=== PATIENT | female | born 1995 | race Caucasian/White ===

== ENCOUNTER 2020-04-17 07:17 | Day surgery (SDC) | payer OTHER, SELFPAY ==
[2020-04-11 15:30] VITALS: BMI 34.0
--- NOTE | 2020-04-15 15:44 | P.CONAN_ITS ---
Documented by User: Aleena Cohen 04/16/20 10:51 HPI - Anesthesia Eval Consult details Narrative: 24yo F for Salpingectomy Laproscopic PMFSH Past Medical History Medical History Anxiety and depression Obesity (BMI 30.0-34.9) Family History Family History Mother Asthma Maternal Grandmother HTN (hypertension) Surgical History Surgical History No history of previous surgery Social History Social History Are you a primary transitional care nurse to a significant other at home: No Do you presently have visiting nurse or other home services: No Alcohol intake: never Smoking Status: Current every day smoker Tobacco Type: Cigarette Packs Per Day: 0.5 Cigarettes Per Day: 10.0 Years Smoked: 13 Smoked in Last 30 Days: Yes Patient Interested in Nicotine Replacement: No Patient Given Instructions on How to Stop Smoking: Yes Date Education Initiated: 04/11/20 Use of substances other than those prescribed or required for medical reasons: No Have you been hit, kicked, punched, or otherwise hurt by someone within the past year? If so, by whom?: No Advance Directives: No Advance Directives Information Provided: No Advance Directives on File: No Recently lost weight without trying: No Sexual orientation: Straight/Heterosexual Gender identity: female Meds Allergies Allergy/AdvReac Type Severity Reaction Status Date / Time No Known Allergies Allergy Verified 04/14/20 11:27 Exam Exam Date and Time: April 15, 2020 1544 Height,Weight and Vital Signs: Height 5 ft 1 in Weight 81.647 kg Pertinent Lab Results Pertinent Lab Results: Laboratory Tests 11/15/19 16:10 WBC 9.7 Hgb 12.1 Hct 35.6 L Plt Count 194 Assessment and Plan Assessment Anesthesia Assessment: Chart Reviewed Documented by User: Sandra Moralez 04/17/20 09:08 [facility] Past Medical History Medical History Anxiety and depression Obesity (BMI 30.0-34.9) Family History Family History Mother Asthma Maternal Grandmother HTN (hypertension) Family history of problems with anesthesia: No Surgical History Surgical History No history of previous surgery Social History Social History Are you a primary transitional care nurse to a significant other at home: No Do you presently have visiting nurse or other home services: No Alcohol intake: never Smoking Status: Current every day smoker Tobacco Type: Cigarette Packs Per Day: 0.5 Cigarettes Per Day: 10.0 Years Smoked: 13 Smoked in Last 30 Days: Yes Patient Interested in Nicotine Replacement: No Patient Given Instructions on How to Stop Smoking: Yes Date Education Initiated: 04/11/20 Use of substances other than those prescribed or required for medical reasons: No Have you been hit, kicked, punched, or otherwise hurt by someone within the past year? If so, by whom?: No Advance Directives: No Advance Directives Information Provided: No Advance Directives on File: No Recently lost weight without trying: No Sexual orientation: Straight/Heterosexual Gender identity: female Meds Allergies Allergy/AdvReac Type Severity Reaction Status Date / Time No Known Allergies Allergy Verified 04/14/20 11:27 Exam Height,Weight and Vital Signs: Vital Signs Temp Pulse Resp BP Pulse Ox 04/17/20 07:45 97.4 F 70 18 102/51 L 96 Pertinent Lab Results Pertinent Lab Results: Lab Results 04/17/20 Range/Units 07:35 Beta HCG, Quant < 2 mIU/mL Airway Mallampati Class: III (Small mouth opening) TM Dist: >3cm Neck ROM: Full Loose/Missing/Broken Teeth: No Heart: RRR Lungs: CTAB Assessment and Plan Assessment Anesthesia Assessment: Anesthesia Plan Discussed and Chart Reviewed Final Anesthetic Review NPO: Yes ASA Class: II Final Preanesthetic Review: No Changes in Pt Med Stat, Meds/Allgs Chart Reviewed and Consent Obtained/Reviewed Patient Risk: Low Procedure Risk: Intermediate Anesthetic Plan Anesthetic Plan: GA Disposition: Standard PACU
[2020-04-17] VITALS (11 sets, daily range): BP systolic 85–106; BP diastolic 50–71; PULSE 59–85; RESP 16–18; TEMP 36.3–37.2; O2SAT 95–100
[2020-04-17] MEDS: Lactated Ringers 1,000 ML 100 ML IVCONT (07:42)
[2020-04-17] MEDS: Acetaminophen 325 MG TABLET 650 MG PO (07:42)
[2020-04-17 08:50] LABS: HCG Quantitative < 2 mIU/mL
--- NOTE | 2020-04-17 09:10 | MHC.SHP ---
Pre-Procedural Eval Section A The patient is an INPATIENT: No Changes since office visit: No Cold of Flu in the past 2 weeks, No New Medical Problems, No Changes in Medication and No Patient answered all questions The History & Physical has been completed within 30 days and I have reviewed it.: Yes Section B Chief Complaint: contraceptive management Allergies: Allergies Allergy/AdvReac Type Severity Reaction Status Date / Time No Known Allergies Allergy Verified 04/14/20 11:27 Plan Patient has been examined and remains a candidate for the planned procedure
[2020-04-17] MEDS: oxyCODONE HCl Immed Release 5 MG TABLET PO ×2 (10:50→11:28)
--- NOTE | 2020-04-17 10:50 | W.PM.OPN ---
Operative Note Operative Note Date of Service: 04/17/20 Narrative: Ms. Waddell is a 24 year old who has completed her family planning and desires a permanent form of sterilization. Surgical Risks: The patient was informed of the risks and benefits of the procedure. Risks included but were not limited to bleeding, infection, injury to the vulva, vagina, or cervix, and uterine perforation. The patient was counseled on the risk of sterilization failure being about 1% on average. The patient was informed that in the event a occurs, the risk of ectopic is increased. The patient expressed understanding of the risks involved, all questions were answered, and the patient consented to the procedure. The patient had valid sterilization consent at the time of the procedure. The patient was taken to the operating room where a time out was performed to confirm correct patient and correct procedure. General anesthesia was established. The patient was then positioned on the operating table in the dorsal lithotomy position with the legs supported using stirrups. All pressure points were padded and a Ron hugger was placed to maintain control of core body temperature. The patient was then prepped and draped in the usual sterile fashion. A red rubber catheter was inserted and 100mL urine obtained. A spongestick was placed in the vagina for uterine manipulation. Attention was turned to the abdomen where a 5mm vertical infraumbilical incision was made. The 5mm trocar was introduced under direct visualization using the laparoscopy within the sleeve of the trocar. After intra-abdominal placement had been confirmed, the trocar was removed leaving the sleeve in place. The camera was introduced and pneumoperitoneum was established using carbon dioxide. Inspection of the abdominal cavity showed no gross abnormalities and there was no evidence of injury to the bowel, bladder, or vasculature. Attention was turned to the pelvis. The patient was placed into Trendelenburg position. The fallopian tubes and ovaries were visualized bilaterally. There were no abnormalities noted. A small incision was made approximately 2cm superior and 2cm medial to the left ASIS. A 5mm trocar was introduced through this incision under direct visualization with the laparoscope. The identical procedure was then performed on the right. The fallopian tubes were inspected bilaterally and the fimbriated ends of the fallopian tube were visualized bilaterally. The distal end of the left tube was grasped and lifted up and being careful to avoid the ovarian vessels, salpingectomy was performed walking the Ligasure device cauterizing and cutting one bite at a time from the distal end to the medial end of the tube, where it was cauterized and cut from the uterus at the cornua and removed through the trocar. The identical procedure was then performed on the right. The tubes were sent to pathology for analysis. The pneumoperitoneum was then evacuated. The laparoscope was removed and the trocar sleeves were removed. The skin incisions were closed with interrupted 3-0 vicryl sutures and Dermabond. Good hemostasis was confirmed. The patient was transferred to the recovery room in stable condition. All needle, sponge, and instrument counts were noted to be correct x2 at the end of the procedure. EBL: 2cc
[2020-04-17] MEDS: fentaNYL citrate/PF 100 MCG/2 ML VIAL 25 MCG IVPUSH ×3 (10:57→11:22)
--- NOTE | 2020-04-17 12:50 | HO.POSTANES ---
Post Anesthesia Evaluation Post Anesthesia Evaluation Vital Signs: Vital Signs Temp Pulse Resp BP Pulse Ox 04/17/20 12:11 98.9 F 79 17 95/50 L 95 04/17/20 11:40 67 99/60 96 04/17/20 11:27 72 94/56 L 98 04/17/20 11:22 16 04/17/20 11:15 71 16 95/54 L 98 04/17/20 11:02 59 16 100/62 99 04/17/20 10:57 66 16 104/71 99 04/17/20 10:52 74 16 106/64 99 04/17/20 10:47 82 16 91/64 98 04/17/20 10:42 98.6 F 85 16 85/63 L 100 04/17/20 07:45 97.4 F 70 18 102/51 L 96 Anesthesia: General Endotracheal-GETA Mental Status: Awake Pain Control: Satisfactory Nausea/Vomiting: None Hydration: Adequate Anesthesia-Related Issues: No Anes. Related Issues
== END 2020-04-17 13:02 | disposition home or self-care (01) ==
PROVIDERS: Visit Provider Obstetrics & Gynecology
PROC: (CPT 58661; principal; 2020-04-17 09:10)
DX: Z30.2 Encounter for sterilization (principal); F17.210 Nicotine dependence, cigarettes, uncomplicated; F32.9 Major depressive disorder, single episode, unspecified; E66.9 Obesity, unspecified; Z68.34 Body mass index [BMI] 34.0-34.9, adult
CPT/HCPCS: 58661; 84702; 88302; J1100; J1885; J2250; J2405; J3010

== ENCOUNTER → 2020-04-30 12:44 | Outpatient (BNVA) | payer OTHER, SELFPAY | PROVIDERS: PCP Internal Medicine; Visit Provider Obstetrics & Gynecology | DX: Z13.89 Encounter for screening for other disorder (principal) ==

== ENCOUNTER 2020-08-18 15:38 | Outpatient (REF) | payer OTHER, SELFPAY ==
[2020-08-18 17:01] LABS: Amphetamine Screen Urine Not Detected (Not Detect); Barbiturates, Urine Not Detected (Not Detect); Benzodiazepines Screen Urine Not Detected (Not Detect); Cannabinoid Screen Urine Not Detected (Not Detect); Cocaine Screen Urine Not Detected (Not Detect); Opiate Screen Urine Not Detected (Not Detect); Phencyclidine Screen Urine Not Detected (Not Detect)
== END 2020-08-18 15:39 | disposition home or self-care (01) ==
LOC: HO.LAB 15:38
PROVIDERS: Visit Provider Advanced Practice Midwife
DX: Z34.90 Encounter for supervision of normal pregnancy, unspecified, unspecified trimester (principal)
CPT/HCPCS: 80307

== ENCOUNTER 2021-04-25 23:09 | Emergency (ER) | payer OTHER, SELFPAY ==
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
--- NOTE | ~2021-04-25 | XR_ITS ---
EXAMINATION: XR ELBOW, LEFT CLINICAL INFORMATION: Pain. Decreased range of motion. COMPARISON: None TECHNIQUE: Four views of the left elbow. FINDINGS: No fracture or dislocation. Alignment is anatomic. Joint spaces are maintained. No elbow joint effusion. The soft tissues are unremarkable. XR/XR elbow LT min 3V IMPRESSION: Normal left elbow.
[2021-04-25 23:15] VITALS: BP 110/68; PULSE 84; RESP 20; TEMP 36.2; O2SAT 97; BMI 33.0
[2021-04-26] MEDS: oxyCODONE HCl Immed Release 5 MG TABLET PO (00:58)
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
--- NOTE | 2021-04-26 01:17 | PC.NURSE ---
JOSAFAT FLORES WILL RESUME PT CARE REPORT GIVEN.
[2021-04-26] MEDS: Ketorolac Tromethamine 30 MG/ML VIAL IM (02:33)
--- NOTE | 2021-04-26 02:48 | PC.NURSE ---
Shoulder immobilizer applied. Pt medicated per MAR with Toradol.
== END 2021-04-26 02:48 | disposition home or self-care (01) ==
PROVIDERS: Emergency Provider Emergency Medicine
DX: S40.022A Contusion of left upper arm, initial encounter (principal); V43.52XA Car driver injured in collision with other type car in traffic accident, initial encounter; Y93.9 Activity, unspecified; Y92.410 Unspecified street and highway as the place of occurrence of the external cause; Y99.9 Unspecified external cause status
CPT/HCPCS: 73080; 73090; 73110; 73130; 96372; 99284; J1885

== ENCOUNTER 2022-06-07 08:00 | Outpatient (REF) | payer OTHER, SELFPAY ==
[2022-06-07 10:23] LABS: HCG Quantitative < 2 mIU/mL
== END 2022-06-07 08:01 | disposition home or self-care (01) ==
LOC: HO.LAB 08:00
PROVIDERS: Visit Provider Advanced Practice Midwife
DX: N92.6 Irregular menstruation, unspecified (principal); Z98.51 Tubal ligation status; Z32.02 Encounter for pregnancy test, result negative
CPT/HCPCS: 36415; 81025; 84702; 99212

== ENCOUNTER 2023-06-22 11:22 | Outpatient (AMB) | payer OTHER, SELFPAY ==
--- NOTE | 2023-06-22 11:33 | A.OFFVIS_ITS ---
Intake Vital Signs 06/22/23 11:35 Height 5 ft 1 in Weight 131 lb BMI 24.7 BP 100/58 L Intake Visit Reasons: AUB per RN msg Food And Nutrition Services Assistant: Food And Nutrition Services Assistant Present (Shayna) Allergies No Known Allergies Allergy (Verified 06/22/23 11:35) Is last menstrual period known: Yes (spotted 06/05 through 06/12) Last menstrual period: 05/09/23 HPI HPI Comments History of Present Illness Details Patient is here today with concerns of an irregular menses. She reports skipping in April, bled May 09, then started light spotting at the end of the month. She reports some mild pelvic cramping, frequency of urination at times. No odors or irritation. She reports breast tenderness. Admits to unprotected intimacy, is open to being with her new partner. [facility] Medical History Postoperative pain Obesity (BMI 30.0-34.9) Anxiety and depression Surgical History Tubal ligation status No history of previous surgery Family History Mother Asthma Maternal Grandmother HTN (hypertension) Social History Are you a primary healthcare administrative assistant to a significant other at home: No Do you presently have visiting nurse or other home services: No Alcohol intake: never Cigarette Packs Per Day: 0.5 Cigarettes Per Day: 10.0 Years Smoked: 13 Sexual orientation: Straight/Heterosexual Gender identity: Female Female Reproductive History Menstrual Age of Menarche: 13 Duration of menses: 3-5 days Date of last menstrual period: 05/09/23 control method: permanent sterilization Permanent Sterilization: BTL Total pregnancies: 3 Full term: 2 Number of Living Children: 2 Ab induced: 1 Date of last pap smear: 07/25/19 (ascus +hpv) History of abnormal pap smear: Yes Review of Systems Const All systems reviewed & are unremarkable except as noted in HPI and below Physical Exam Vital Signs: Last Vital Signs BP 100/58 L 06/22/23 11:35 BMI result Body Mass Index 24.7 Const General: cooperative, healthy appearing and no acute distress Orientation/consciousness: patient oriented x3 GI Inspection: Yes normal to inspection Palpation (GI): Soft to palpation and Other GI palpation findings present (Nontender) Rectal Exam - Female: visual inspection normal General: Yes bladder normal to palpation External Female Exam: normal appearance of the urethra Speculum Exam - Vagina: normal appearance of the vagina, normal palpation and normal vaginal discharge Speculum Exam - Cervix: normal appearance of the cervix and normal palpation Bimanual exam- vagina & uterus: normal bimanual exam, normal palpation, uterine size normal, bladder normal to palpation, normal palpation, uterine shape normal and non-tender Bimanual Exam- Adnexa, other: normal adnexae Neuro General: patient oriented x3 Results AMB Test Urine AMB Test Urine Negative Last Edit by EDGAR Rojas on 06/22/23 11:41 Results Reviewed Results Reviewed: Laboratory Last Values [facility] Clinic Negative 06/22/23 11:41 Assessment & Plan Assessment & Plan (1) Irregular menses: Code(s): N92.6 - Irregular menstruation, unspecified (2) Pelvic cramping: Code(s): R10.2 - Pelvic and perineal pain (3) Frequency of urination: Code(s): R35.0 - Frequency of micturition (4) History of abnormal cervical Pap smear: Code(s): Z87.42 - Personal history of other diseases of the female genital tract Plan Discussed: History of HPV need for repeat Pap. Monitoring menses, repeating test as needed. STD screening including blood work. Start vitamins. Follow-up in 2 weeks for lab review and recheck test. All of her questions and concerns were addressed to the best of my ability and shared decision making. She is agreeable to the plan of care. This note is constructed using voice recognition software. While every effort has been made to ensure accuracy, scientific investigator errors may have been included. Orders: Orders Pap Smear Today Z01.419 - Encounter for gynecological examination (general) (routine) without abnormal findings Bacterial Vaginosis Panel Today R10.2 - Pelvic and perineal pain, Z20.2 - Contact with and (suspected) exposure to infections with a predominantly sexual mode of transmission CT NG by PCR Today R10.2 - Pelvic and perineal pain, Z20.2 - Contact with and (suspected) exposure to infections with a predominantly sexual mode of transmission HIV Ab/Ag Today O72.0 - Third-stage hemorrhage, Z20.2 - Contact with and (suspected) exposure to infections with a predominantly sexual mode of transmission Hepatitis C Antibody Reflex Today Z20.2 - Contact with and (suspected) exposure to infections with a predominantly sexual mode of transmission Hepatitis B Core Antibody Today O72.0 - Third-stage hemorrhage, Z20.2 - Contact with and (suspected) exposure to infections with a predominantly sexual mode of transmission AMB HCG Urine Test Today Z32.02 - Encounter for test, result negative Syphilis Screen Today O72.0 - Third-stage hemorrhage, Z20.2 - Contact with and (suspected) exposure to infections with a predominantly sexual mode of transmission Medications: New PNV,calcium [id number] acid 27 mg iron- 1 mg ( Vitamins Plus Low Iron) 1 tab PO DAILY 90 tabs 4RF Coding Level of Care Code Est Pt Level 3 (02470) Diagnoses Irregular menses N92.6 Pelvic cramping R10.2 Frequency of urination R35.0 History of abnormal cervical Pap smear Z87.42
[2023-06-22 11:35] VITALS: BP 100/58; BMI 24.7
== END 2023-06-22 12:07 | disposition home or self-care (01) ==
LOC: HO.HWS 11:22
PROVIDERS: Visit Provider Advanced Practice Midwife
DX: N92.6 Irregular menstruation, unspecified (principal); R10.2 Pelvic and perineal pain; R35.0 Frequency of micturition; Z87.42 Personal history of other diseases of the female genital tract; Z32.02 Encounter for pregnancy test, result negative
CPT/HCPCS: 99213

== ENCOUNTER 2023-06-22 11:22 | Outpatient (REF) | payer OTHER, SELFPAY | END 2023-06-22 11:23 | disposition home or self-care (01) | LOC: HO.LNP 11:22 | PROVIDERS: Visit Provider Advanced Practice Midwife | DX: Z01.419 Encounter for gynecological examination (general) (routine) without abnormal findings (principal); O72.0 Third-stage hemorrhage; N92.6 Irregular menstruation, unspecified; R35.0 Frequency of micturition; R10.2 Pelvic and perineal pain; Z87.42 Personal history of other diseases of the female genital tract; Z20.2 Contact with and (suspected) exposure to infections with a predominantly sexual mode of transmission; Z32.02 Encounter for pregnancy test, result negative | CPT/HCPCS: 81003; 81025; 88142; 99212 ==

== ENCOUNTER 2023-06-22 12:02 | Outpatient (REF) | payer OTHER, SELFPAY ==
[2023-06-22 17:11] LABS: CT PCR NOT DETECTED (Not Detect.); NG PCR NOT DETECTED (Not Detect.)
[2023-06-23 03:45] LABS: Syphilis Screen Nonreactive (Nonreactive)
[2023-06-23 04:10] LABS: HIV AB/AG Nonreactive (Nonreactive); HIV Num 1 0.05 S/CO (0.00-0.99); Hepatitis B Core Antibody Nonreactive (Nonreactive); ~HepC Num1 0.12 S/CO (0.00-0.79); ~Hepatitis C Antibody Nonreactive (Nonreactive)
[2023-06-23 13:36] LABS: BV Int Neg Control Negative (Negative); BV Int Pos Control Positive (Positive)
== END 2023-06-22 12:03 | disposition home or self-care (01) ==
LOC: HO.LAB 12:02
PROVIDERS: Visit Provider Advanced Practice Midwife
DX: O72.0 Third-stage hemorrhage (principal); R10.2 Pelvic and perineal pain; R35.0 Frequency of micturition; Z20.2 Contact with and (suspected) exposure to infections with a predominantly sexual mode of transmission
CPT/HCPCS: 0353U; 86704; 86780; 86803; 87086; 87147; 87389; 87480; 87510; 87660

== ENCOUNTER 2024-02-23 05:57 | Emergency (ER) | payer OTHER, SELFPAY ==
--- NOTE | ~2024-02-23 | XR_ITS ---
EXAMINATION: XR SHOULDER, LEFT CLINICAL INFORMATION: Pain. Injury. COMPARISON: None available. TECHNIQUE: Three views of the left shoulder. FINDINGS: Visualized portions of the proximal humerus demonstrate no fracture. Humeral head demonstrates good articulation with the glenoid fossa. No significant degenerative changes of the shoulder. Visualized ribs and lung parenchyma are unremarkable. XR/XR shoulder LT min 2V IMPRESSION: Unremarkable radiographs of the left shoulder. Electronically signed by: Leo Rashid MD 02/23/2024 08:03 AM EDT
[2024-02-23 05:58] VITALS: BP 120/78; PULSE 80; O2SAT 97
[2024-02-23 06:02] VITALS: BP 131/64; PULSE 84; RESP 20; TEMP 36.5; O2SAT 99
[2024-02-23 06:09] VITALS: BMI 24.3
--- NOTE | 2024-02-23 06:40 | ED_ITS ---
HPI - General Adult General Chief complaint: Back Pain/Injury Stated complaint: back pain Time Seen by Provider: 02/23/24 06:39 Source: patient Mode of arrival: ambulatory Limitations: no limitations History of Present Illness ED Provider: Leann Workman PA-C HPI narrative: Patient is a 28 year old assigned female at with no reported medical history presenting to the emergency department today with left shoulder pain. Patient states that she felt a pop in her left upper back / shoulder and is now having shoulder pain that is worse with movement. Patient denies any dizziness, lightheadedness, abdominal pain, nausea, vomiting, fever, chills, blurry vision, double vision, loss of vision, chest pain, difficulty breathing, shortness of breath, night sweats, pain with urination, increased urinary frequency, increased urinary urgency, blood in his urine or stool, syncope or a near syncopal episode, bowel incontinence, bladder incontinence, or any other complaints at this time. Relieving factors: none Exacerbating factors: none Associated symptoms: denies other symptoms Treatments prior to arrival: none Related Data Previous Rx's ?Medication ?Instructions ?Recorded vitamin with calcium 1 tab PO DAILY #90 tabs 06/22/23 no.72-iron 27 mg-folic acid 1 mg tablet ( Vitamins Plus Low Iron) amoxicillin 500 mg capsule 500 mg PO Q8H 5 days #15 caps 06/23/23 cyclobenzaprine 5 mg tablet 5 mg PO TID PRN pain 7 days #21 02/23/24 tabs Allergies Allergy/AdvReac Type Severity Reaction Status Date / Time No Known Allergies Allergy Verified 02/23/24 06:12 Review of Systems Constitutional: Constitutional: Reports no additional constitutional complaints, Denies chills, Denies fever(s) and Denies night sweats Eyes: Eyes: Reports no additional eye complaints, Denies blurry vision, Denies change in vision, Denies diplopia, Denies eye discharge, Denies loss of vision and Denies eye pain ENT: Denies dizziness Cardiovascular: Cardiovascular: Reports no additional cardiovascular complaints, Denies chest pain, Denies lightheadedness, Denies Loss of Consciousness and Denies dyspnea Respiratory: Respiratory: Reports no additional respiratory complaints and Denies dyspnea Gastrointestinal: Gastrointestinal: Reports no additional gastrointestinal complaints, Denies abdominal pain, Denies melena, Denies hematochezia, Denies change in bowel habits and Denies change in stool character Genitourinary: Genitourinary: Denies hematuria, Denies urinary frequency, Denies dysuria, Denies urinary incontinence, Denies urinary hesitancy and Denies urinary urgency Musculoskeletal: Musculoskeletal: Reports no additional musculoskeletal complaints, Denies numbness and Denies tingling Comments: left shoulder pain Neurologic: Denies dizziness, Denies loss of vision, Denies numbness and Denies tingling Psychiatric: Psychiatric: Reports no additional psychiatric complaints Endocrine: Endocrine: Reports no additional endocrine complaints Hematologic/Lymphatic: Hematologic/Lymphatic: Reports no additional hematologic/lymphatic complaints Allergic/Immunologic: Allergic/Immunologic: Reports no additional allergic/immunologic complaints PMFSH Past Medical History Attestation statement: The following information was validated with the patient. Source: old records reviewed and nursing notes reviewed Medical History Postoperative pain Obesity (BMI 30.0-34.9) Anxiety and depression Surgical History Tubal ligation status No history of previous surgery Family History Family History Mother Asthma Maternal Grandmother HTN (hypertension) Social History Social History Are you a primary lawn care worker to a significant other at home: No Do you presently have visiting nurse or other home services: No Alcohol intake: current Cigarette Packs Per Day: 0.5 Cigarettes Per Day: 10.0 Years Smoked: 13 Smoked in Last 30 Days: No Use of substances other than those prescribed or required for medical reasons: Yes Substance Use Type: Marijuana Advance Directives: No Advance Directives Information Provided: Yes Do you have a plan to hurt others: No Plan Patient : No Sexual orientation: Straight/Heterosexual Gender identity: Female Physical Exam ED Vital Signs: Vital Signs - 24 hr 02/23/24 06:02 02/23/24 07:03 Temperature 97.7 F Pulse Rate 84 72 Respiratory Rate 20 16 Blood Pressure 131/64 114/76 Pulse Oximetry 99 100 Oxygen Delivery Method Room Air Room Air BMI result Body Mass Index 24.3 Const General: cooperative, no acute distress, alert and awake Nutritional Appearance: well nourished Orientation/consciousness: patient oriented x3 Limitations: no limitations HENMT Head: Yes normal to inspection and Yes atraumatic Ears: hearing grossly normal bilaterally and external ears normal General nose exam: Normal external nose present, no nasal discharge noted and no epistaxis Face and sinus: Yes normal facial exam, No abrasion and No laceration Mouth: Normal oral and palatal mucosa present, no drooling and no muffled voice Eyes General: appearance normal, both eyes and all related structures Periorbital: periorbital findings normal Eyelids: Yes eyelids normal Conjunctivae: conjunctivae normal Pupils: Equal, round and reactive pupils present EOM: EOMs intact bilaterally Neck Neck: Yes normal visual inspection, Yes full ROM and Yes no lymphadenopathy Chest Chest palpation & inspection: normal inspection of the chest Resp Effort & Inspection: normal respiratory effort and able to speak in complete sentences GI Inspection: Yes normal to inspection Neuro General: patient oriented x3 and moves all extremities Cranial nerves: Yes Equal, round and reactive pupils present Cognition (Neuro): normal cognition Extrem Other: pain with left upper extremity ROM General: Yes normal to inspection and Yes capillary refill normal Psych Appearance: grossly normal Mental Status: mental status grossly normal Affect: normal affect Attitude: cooperative Thought process: Normal thought process present Thought content: Normal thought content present Insight: Good insight present (Psych) Medications Administered Discontinued Medications Generic Name Dose Route Start Last Admin Trade Name Chacortaq PRN Reason Stop Dose Admin Cyclobenzaprine HCl 5 mg 02/23/24 06:59 02/23/24 07:16 Cyclobenzaprine Hcl 5 Mg Tablet PO 02/23/24 07:00 5 mg ONCE ONE Administration Ketorolac Tromethamine 15 mg 02/23/24 06:59 02/23/24 07:16 Ketorolac Tromethamine 15 Mg/Ml Vial IM 02/23/24 07:00 15 mg ONCE ONE Administration Oxycodone HCl 5 mg 02/23/24 06:59 02/23/24 07:16 Oxycodone Hcl Immed Release 5 Mg Tablet PO 02/23/24 07:00 5 mg ONCE ONE Administration Medical Decision Making Medical Decision Making [facility] Narrative: Patient is a 28 year old assigned female at with no reported medical history presenting to the emergency department today with left shoulder pain. Patient's physical exam was as noted in the physical exam portion of this note. Patient's left shoulder x-ray showed no acute process. Patient's clinical presentation is consistent with a strain, sprain, or rotator cuff injury. I explained my physical exam findings as well as all test results to the patient. I answered all questions asked by the patient. Patient received IM Toradol, PO flexeril, and PO Oxycodone which, upon re-evaluation, she stated it helped her symptoms significantly. I stressed the importance of the patient taking her medication as directed (either prescribed or as the over the counter packaging recommends). I stressed the importance of the patient following up with her primary care provider and an orthopedic provider. I stressed the importance of the patient returning to the emergency department immediately if her symptoms w ere to worsen or if she were to develop any dizziness, shortness of breath, difficulty breathing, chest pain, blurry vision, loss of vision, nausea, vomiting, abdominal pain, fever, chills, back pain, or any other complaints. Patient verbalized agreement and understanding with this treatment plan and discharge. Differential Diagnosis Differential Diagnoses: The differential diagnosis associated with the presentation includes Left shoulder pain Left shoulder strain Left shoulder sprain Left rotator cuff injury Admission/Observation Consideration of admission/observation: Escalation of care including admission/observation considered Patient would have been admitted to the hospital had her work up had any findings where hospital admission was appropriate and her clinical presentation warranted hospital admission. Independent Interpretation I performed an independent interpretation of an: Plain X-Ray Interpretation: My interpretation is in agreement with the radiologist's impression of this imaging study. EXAMINATION: XR SHOULDER, LEFT CLINICAL INFORMATION: Pain. Injury. COMPARISON: None available. TECHNIQUE: Three views of the left shoulder. FINDINGS: Visualized portions of the proximal humerus demonstrate no fracture. Humeral head demonstrates good articulation with the glenoid fossa. No significant degenerative changes of the shoulder. Visualized ribs and lung parenchyma are unremarkable. XR/XR shoulder LT min 2V IMPRESSION: Unremarkable radiographs of the left shoulder. Electronically signed by: Leo Rashid MD 02/23/2024 08:03 AM EDT RP Dictated By: Leo Rashid MD Signed By: Electronically signed by Leo Rashid MD 02/23/24 0803 Radiology Impression Discussion of test interpretation with radiology: I have reviewed the radiologist's reading. Prescription Management I considered prescription management with: Pain Medication (patient prescribed pain medication) Discharge Plan Discharge Clinical Impression: Acute shoulder pain Patient Disposition: Home, Self-Care Instructions: Shoulder Pain (ED) Additional Instructions: Follow up with your primary care provider and an orthopedic provider. Return to the emergency department immediately if your symptoms worsen or if you develop any dizziness, shortness of breath, difficulty breathing, chest pain, blurry vision, loss of vision, nausea, vomiting, abdominal pain, fever, chills, back pain, or any other complaints. Prescriptions: New cyclobenzaprine 5 mg tablet 5 mg PO TID PRN (Reason: pain) 7 Days Qty: 21 0RF No Action amoxicillin 500 mg capsule 500 mg PO Q8H 5 Days Qty: 15 0RF Vitamin Plus Low Iron 27 mg iron- 1 mg tablet 1 tab PO DAILY Qty: 90 4RF Referrals: [facility] [Provider Group] (Call to establish and follow up with an orthopedic provider.) Marylou Howell NP [Primary Care Provider] - Print Language: Indonesian
[2024-02-23 07:03] VITALS: BP 114/76; PULSE 72; RESP 16; O2SAT 100
[2024-02-23] MEDS: Ketorolac Tromethamine 15 MG/ML VIAL IM (07:16)
[2024-02-23] MEDS: Cyclobenzaprine HCl 5 MG TABLET PO (07:16)
[2024-02-23] MEDS: oxyCODONE HCl Immed Release 5 MG TABLET PO (07:16)
[2024-02-23 09:07] VITALS: BP 98/64; PULSE 60; RESP 18; TEMP 36.5; O2SAT 98
== END 2024-02-23 09:09 | disposition home or self-care (01) ==
PROVIDERS: Emergency Provider Emergency Medicine; PCP Nurse Practitioner Family
DX: M25.512 Pain in left shoulder (principal); M54.6 Pain in thoracic spine; F17.210 Nicotine dependence, cigarettes, uncomplicated; Z79.899 Other long term (current) drug therapy
CPT/HCPCS: 73030; 96372; 99284; J1885

== ENCOUNTER 2024-04-12 08:50 | Outpatient (AMB) | payer OTHER, SELFPAY ==
--- NOTE | 2024-04-12 08:51 | MHC.OFFVIS ---
Vital Signs 04/12/24 08:53 BP 90/60 Intake Visit Reasons: breast discharge Intake Note: right Breast discharge, started several weeks ago but stopped the other day Allergies No Known Allergies Allergy (Verified 04/12/24 08:53) Is last menstrual period known: Yes Last menstrual period: 03/28/24 HPI Comments Details: Patient is here today with concerns that she has had bilateral breast pain since her last LMP mid March. Additionally, she has experienced breast discharge from the right side only for the last 2 weeks. Discharge is milky and seen with the expression, initially noted in the shower and more so when squeezed out. She denies any breast injury. Prior breast surgery. No family history of breast cancer. No new medications. She admits to partner suckling during intimacy, and some tingling sensation. History of tubal ligation. UPT is negative today. [facility] Medical History (Updated 04/12/24 @ 09:22 by Jumana Vargas CNM) Galactorrhea Postoperative pain Obesity (BMI 30.0-34.9) Anxiety and depression Surgical History Tubal ligation status No history of previous surgery Family History Mother Asthma Maternal Grandmother HTN (hypertension) Social History Are you a primary caretaker resort to a significant other at home: No Do you presently have visiting nurse or other home services: No Alcohol intake: current Cigarette Packs Per Day: 0.5 Cigarettes Per Day: 10.0 Years Smoked: 13 Substance Use Type: Marijuana Sexual orientation: Straight/Heterosexual Gender identity: Female Female Reproductive History Menstrual Age of Menarche: 13 Date of last menstrual period: 03/28/24 Review of Systems Const All systems reviewed & are unremarkable except as noted in HPI and below Reports no additional complaints Skin/Breast Reports system reviewed and no additional complaints, except as documented and Reports as per HPI Physical Exam Vital Signs: Last Vital Signs BP 90/60 04/12/24 08:53 Const General: cooperative, healthy appearing and no acute distress Chest Other: No nipple discharge elicited bilaterally with expression. Breast/axilla inspection: normal inspection of the breasts and normal inspection of the axillae Breast/axilla palpation: normal palpation of the breasts Skin General skin exam: no rashes or lesions noted Results AMB Test Urine AMB Test Urine Negative Last Edit by EDGAR Rojas on 04/12/24 09:40 Assessment & Plan Assessment & Plan (1) Pain of both breasts: Code(s): N64.4 - Mastodynia (2) Galactorrhea: Code(s): N64.3 - Galactorrhea not associated with childbirth Category: Medical Plan Discussed: Causes for breast discharge-most likely hers has been triggered by direct stimulation of the breast during intimacy. Plan right breast ultrasound. Advised to stop stimulation for now. Await results for plan of care consider prolactin level in several weeks if no stimulation. Report any increase in breast pain or any bloody or discolored nipple discharge. Follow up in person for test results. The patient expressed understanding and agreement with the plan of care. All of her questions and concerns were addressed to the best of my ability. This note is constructed using voice recognition software. While every effort has been made to ensure accuracy, porcelain enamel repairer errors may have been included. Orders: Orders US breast RT complete Today N64.3 - Galactorrhea not associated with childbirth, N64.4 - Mastodynia AMB HCG Urine Test Today Z32.02 - Encounter for test, result negative Coding Level of Care Code Est Pt Level 4 (27271) Diagnoses Pain of both breasts N64.4 Galactorrhea N64.3
[2024-04-12 08:53] VITALS: BP 90/60
== END 2024-04-12 09:28 | disposition home or self-care (01) ==
PROVIDERS: PCP Nurse Practitioner Family; Visit Provider Advanced Practice Midwife
DX: N64.4 Mastodynia (principal); N64.3 Galactorrhea not associated with childbirth; Z32.02 Encounter for pregnancy test, result negative
CPT/HCPCS: 99214

== ENCOUNTER → 2024-04-12 08:50 | Outpatient (BNVA) | payer OTHER, SELFPAY | PROVIDERS: PCP Nurse Practitioner Family; Visit Provider Advanced Practice Midwife | DX: N64.4 Mastodynia (principal); N64.3 Galactorrhea not associated with childbirth | CPT/HCPCS: 81025; 99212 ==

== ENCOUNTER 2024-06-03 18:11 | Emergency (ER) | payer OTHER, SELFPAY ==
[2024-06-03 18:17] VITALS: BP 105/64; PULSE 75; RESP 16; TEMP 36.6; O2SAT 100; BMI 23.5
--- NOTE | 2024-06-03 18:17 | ED.GENADULT ---
HPI - General Adult General Chief complaint: Abdominal Pain Stated complaint: vomiting Source: patient Mode of arrival: ambulatory Limitations: no limitations History of Present Illness ED Provider: Leann Workman PA-C HPI narrative: Patient is a 28 year old assigned female at with no reported medical history presenting to the emergency department today with abdominal pain, nausea, and vomiting. Patient states that she has been having mid abdominal pain with nausea and vomiting. Patient denies any dizziness, lightheadedness, fever, chills, blurry vision, double vision, loss of vision, chest pain, difficulty breathing, shortness of breath, back pain, night sweats, pain with urination, increased urinary frequency, increased urinary urgency, blood in her urine or stool, syncope or a near syncopal episode, recent trauma or falls, bowel incontinence, bladder incontinence, or any other complaints at this time. Relieving factors: none Exacerbating factors: none Associated symptoms: nausea/vomiting Treatments prior to arrival: none Related Data Previous Rx's ?Medication ?Instructions ?Recorded vitamin with calcium 1 tab PO DAILY #90 tabs 06/22/23 no.72-iron 27 mg-folic acid 1 mg tablet ( Vitamins Plus Low Iron) Allergies Allergy/AdvReac Type Severity Reaction Status Date / Time No Known Allergies Allergy Verified 06/03/24 18:19 Review of Systems Constitutional: Constitutional: Reports no additional constitutional complaints, Denies chills, Denies fever(s) and Denies night sweats Eyes: Eyes: Reports no additional eye complaints, Denies blurry vision, Denies change in vision, Denies diplopia, Denies eye discharge, Denies loss of vision and Denies eye pain ENT: Denies dizziness Cardiovascular: Cardiovascular: Reports no additional cardiovascular complaints, Denies chest pain, Denies lightheadedness, Denies Loss of Consciousness and Denies dyspnea Respiratory: Respiratory: Reports no additional respiratory complaints and Denies dyspnea Gastrointestinal: Gastrointestinal: Reports no additional gastrointestinal complaints, Reports abdominal pain, Denies melena, Denies hematochezia, Denies change in bowel habits, Denies change in stool character, Reports nausea and Reports vomiting Genitourinary: Genitourinary: Denies hematuria, Denies urinary frequency, Denies dysuria, Denies urinary incontinence, Denies urinary hesitancy and Denies urinary urgency Musculoskeletal: Musculoskeletal: Reports no additional musculoskeletal complaints, Denies numbness and Denies tingling Neurologic: Denies dizziness, Denies loss of vision, Denies numbness and Denies tingling Psychiatric: Psychiatric: Reports no additional psychiatric complaints Endocrine: Endocrine: Reports no additional endocrine complaints Hematologic/Lymphatic: Hematologic/Lymphatic: Reports no additional hematologic/lymphatic complaints Allergic/Immunologic: Allergic/Immunologic: Reports no additional allergic/immunologic complaints PMFSH Past Medical History Attestation statement: The following information was validated with the patient. Source: old records reviewed and nursing notes reviewed Medical History Galactorrhea Postoperative pain Obesity (BMI 30.0-34.9) Anxiety and depression Surgical History Tubal ligation status No history of previous surgery Family History Family History Mother Asthma Maternal Grandmother HTN (hypertension) Social History Social History Are you a primary primary care pediatrician to a significant other at home: No Do you presently have visiting nurse or other home services: No Alcohol intake: current Cigarette Packs Per Day: 0.5 Cigarettes Per Day: 10.0 Years Smoked: 13 Substance Use Type: Marijuana Advance Directives: No Advance Directives Information Provided: No Do you have a plan to hurt others: No Plan Sexual orientation: Straight/Heterosexual Gender identity: Female Physical Exam ED Vital Signs: Vital Signs - 24 hr 06/03/24 18:17 06/03/24 19:23 Temperature 97.9 F 97.4 F Pulse Rate 75 62 Respiratory Rate 16 16 Blood Pressure 105/64 106/59 L Pulse Oximetry 100 100 Oxygen Delivery Method Room Air Room Air BMI result Body Mass Index 23.5 Const General: cooperative, no acute distress, alert and awake Nutritional Appearance: well nourished Orientation/consciousness: patient oriented x3 Limitations: no limitations HENMT Head: Yes normal to inspection and Yes atraumatic Ears: hearing grossly normal bilaterally and external ears normal General nose exam: Normal external nose present, no nasal discharge noted and no epistaxis Face and sinus: Yes normal facial exam, No abrasion and No laceration Mouth: Normal oral and palatal mucosa present, no drooling and no muffled voice Eyes General: appearance normal, both eyes and all related structures Periorbital: periorbital findings normal Eyelids: Yes eyelids normal Conjunctivae: conjunctivae normal Pupils: Equal, round and reactive pupils present EOM: EOMs intact bilaterally Neck Neck: Yes normal visual inspection, Yes full ROM and Yes no lymphadenopathy Chest Chest palpation & inspection: normal inspection of the chest Resp Effort & Inspection: normal respiratory effort and able to speak in complete sentences GI Inspection: Yes normal to inspection Neuro General: patient oriented x3 and moves all extremities Cranial nerves: Yes Equal, round and reactive pupils present Cognition (Neuro): normal cognition Extrem General: Yes normal to inspection, Yes full ROM and Yes capillary refill normal Psych Appearance: grossly normal Mental Status: mental status grossly normal Affect: normal affect Attitude: cooperative Thought process: Normal thought process present Thought content: Normal thought content present Insight: Good insight present (Psych) Course Course Course Narrative: RME performed by Leann Workman PA-C. Patient is a 28 year old assigned female at presenting to the emergency department with nausea, vomiting, and abdominal pain. Detailed physical exam and review of systems are deferred to the educational speech language clinician. labs and swabs ordered. Patient placed back in the waiting room pending room availability and results. Medical Decision Making Medical Decision Making MDM Narrative: Patient is a 28 year old assigned female at with no reported medical history presenting to the emergency department today with abdominal pain, nausea, and vomiting. Patient's limited physical exam performed in triage was unremarkable. Patient's blood work was unremarkable. Patient's urine sample was grossly contaminated. Patient left the department without completing treatment. Patient left the department before myself or any of the other emergency department clinicians could explain to or review with the patient; physical exam findings, test results, need or lack there of for additional testing, need or lack there of for a procedure to be performed, need or lack there of for hospital admission / transfer, need or lack there of for prescription medication, treatment options, or a treatment plan. Differential Diagnosis Differential Diagnoses: The differential diagnosis associated with the presentation includes Nausea Vomiting Gastroenteritis Admission/Observation Consideration of admission/observation: Escalation of care including admission/observation considered Patient would have been admitted to the hospital had she completed her work up and it had any findings where hospital admission was appropriate, her clinical presentation warranted hospital admission, had myself or any other emergency religion department chair had the ability to discuss need or lack there of for hospital admission, and the patient hadn't left the department without completing treatment. Lab Data [facility] Lab Attestation statement: I reviewed the patient's lab results. My interpretation of these results are in the [facility] Rationale portion of this note. 06/03/24 18:47 06/03/24 18:47 Labs: Lab Results 06/03/24 Range/Units 18:47 WBC 9.8 (4.8-10.8) X10*3/uL RBC 4.52 (4.20-5.50) X10*6/uL Hgb 13.7 (12.0-16.0) g/dl Hct 39.3 (37.0-47.0) % MCV 86.9 (80.0-98.0) fL MCH 30.3 (27.0-33.0) pg MCHC 34.9 (31.0-35.0) g/dl RDW 12.3 (11.0-16.0) % Plt Count 216 (160-400) X10*3/uL MPV 9.4 (9.4-12.3) fL Immature Gran % (Auto) 0.3 (0.0-0.4) % Neut % (Auto) 85.0 H (45-73) % Lymph % (Auto) 9.6 L (20-40) % [place] % (Auto) 4.6 (2-11) % Eos % (Auto) 0.3 (0-4) % Baso % (Auto) 0.2 (0-2) % Lymph # (Auto) 0.9 L (1.2-4.9) X10*3/uL [place] # (Auto) 0.5 (0.1-1.2) X10*3/uL Eos # (Auto) 0.0 (0.0-0.4) X10*3/uL Baso # (Auto) 0.0 (0.0-0.2) X10*3/uL Abs Immat Gran (auto) 0.03 (0.00-0.03) X10*3/uL Absolute Neuts (auto) 8.4 H (2.0-8.3) x10*3/uL Absolute Nucleated RBC 0.000 (0.0-0.012) X10*3/uL Nucleated RBC % (auto) 0.0 (0.0-0.2) /100WBC Sodium 138 (135-145) mmol/L Potassium 3.4 (3.3-5.1) mmol/L Chloride 106 (96-108) mmol/L Carbon Dioxide 22 (22-29) mmol/L Anion Gap 13 (12-20) BUN 11 (9-16) mg/dL Creatinine 0.68 (0.5-1.4) mg/dL Estim Creat Clear Calc 92.9 Estimated GFR > 60 Random Glucose 90 (60-115) mg/dL Calcium 8.5 (8.4-10.2) mg/dL Magnesium 1.9 (1.6-2.6) mg/dL Total Bilirubin 0.8 (0.0-1.0) mg/dL AST 17 (5-31) U/L ALT 13 (0-31) U/L Alkaline Phosphatase 37 L (39-117) U/L Total Protein 7.2 (6.5-8.0) g/dL Albumin 4.3 (3.5-5.0) g/dL Lipase 16 (8-78) U/L Beta HCG, Quant < 2 mIU/mL Urine Color Dark Yellow Urine Appearance Cloudy Urine pH 5.5 (5.0-9.0) Ur Specific [place] >= 1.030 H (1.005-1.025) Urine Protein Trace (Neg-Trace) mg/dL Urine Glucose (UA) Negative (Negative) mg/dL Urine Ketones 80 (Negative) mg/dL Urine Blood Negative (Negative) Urine Nitrite Negative (Negative) Ur Leukocyte Esterase Small (1+) H (Negative) Urine RBC 0-2 (0-2) /HPF Urine WBC 0-5 (0-5) /HPF Ur Squamous Epith Cells 11-20 (0-2) /HPF Urine Bacteria 1+ (None Seen) Hyaline Casts 0-2 (0-2) /LPF Influenza Type A (PCR) NEGATIVE (Negative) Influenza Type B (PCR) NEGATIVE (Negative) RSV RNA Qual (PCR) NEGATIVE (Negative) SARS-CoV-2 RNA (RT-PCR) NEGATIVE (Negative) Tests considered The following testing was considered but not selected: I would have discussed obtaining a CT of the abdomen/pelvis with the patient had she not left the department without completing treatment. Discharge Plan Discharge Clinical Impression: Nausea & vomiting, Abdominal pain Patient Disposition: Left W/O Completing Treatment Prescriptions: No Action Vitamin Plus Low Iron 27 mg iron- 1 mg tablet 1 tab PO DAILY Qty: 90 4RF Discharge Date/Time: 06/03/24 23:54
[2024-06-03 18:58] LABS: MANUAL DIFF FLAG NO
[2024-06-03 19:00] LABS: Appearance Urine Cloudy; Basophils Percent Auto 0.2 % (0-2); Color Urine Dark Yellow; Eosinophils Percent Auto 0.3 % (0-4); Glucose Urine UA Negative (Negative); Hematocrit 39.3 % (37.0-47.0); Hemoglobin 13.7 g/dl (12.0-16.0); Imm Gran Abs Auto 0.03 X10*3/uL (0.00-0.03); Imm Gran Pct Auto 0.3 % (0.0-0.4); Leukocyte Esterase Urine Small (1+) (Negative); Lymphocytes Absolute Auto 0.9 X10*3/uL (1.2-4.9); Lymphocytes Percent Auto 9.6 % (20-40); Mean Corpuscular HGB Conc 34.9 g/dl (31.0-35.0); Mean Corpuscular Hemoglobin 30.3 pg (27.0-33.0); Mean Corpuscular Volume 86.9 fL (80.0-98.0); Mean Platelet Volume 9.4 fL (9.4-12.3); Monocytes Absolute Auto 0.5 X10*3/uL (0.1-1.2); Monocytes Percent Auto 4.6 % (2-11); Neutrophils Absolute Auto 8.4 x10*3/uL (2.0-8.3); Nitrite Urine Negative (Negative); PH 5.5 (5.0-9.0); Platelet Count 216 X10*3/uL (160-400); Red Blood Count 4.52 X10*6/uL (4.20-5.50); Red Cell Distribution Width 12.3 % (11.0-16.0); Specific Gravity - Urine >= 1.030 (1.005-1.025); UMIC TRIGGER UACC YES; Urine Blood Negative (Negative); Urine Ketones 80 mg/dL (Negative); Urine Protein Trace mg/dL (Neg-Trace); White Blood Count 9.8 X10*3/uL (4.8-10.8)
[2024-06-03 19:12] LABS: Bacteria Urine 1+ (None Seen); Hyaline Casts Urine 0-2 /LPF (0-2); RBC Urine 0-2 /HPF (0-2); UACC Culture Trigger YES; WBC Urine 0-5 /HPF (0-5)
[2024-06-03 19:18] LABS: Alanine Aminotransferase 13 U/L (0-31); Albumin Level 4.3 g/dL (3.5-5.0); Alkaline Phosphatase 37 U/L (39-117); Anion Gap 13 (12-20); Aspartate Amino Transferase 17 U/L (5-31); Bilirubin Total 0.8 mg/dL (0.0-1.0); Blood Urea Nitrogen 11 mg/dL (9-16); Calcium 8.5 mg/dL (8.4-10.2); Carbon Dioxide 22 mmol/L (22-29); Chloride 106 mmol/L (96-108); Creatinine Clr Calc Pharmacy 92.9; Estimated Glomerular Filt Rate > 60; Glucose Random 90 mg/dL (60-115); Lipase 16 U/L (8-78); Magnesium 1.9 mg/dL (1.6-2.6); Potassium 3.4 mmol/L (3.3-5.1); Sodium 138 mmol/L (135-145); Total Protein 7.2 g/dL (6.5-8.0)
[2024-06-03 19:20] LABS: HCG Quantitative < 2 mIU/mL
[2024-06-03 19:23] VITALS: BP 106/59; PULSE 62; RESP 16; TEMP 36.3; O2SAT 100
[2024-06-03 19:35] LABS: Influenza A PCR NEGATIVE (Negative); Influenza B PCR NEGATIVE (Negative); Resp Syncy Virus RNA Qual PCR NEGATIVE (Negative); SARS COV2 PCR INHOUSE NEGATIVE (Negative)
--- NOTE | 2024-06-03 23:53 | PC.NURSE ---
Called in [facility] multiple times with no answer
== END 2024-06-03 23:54 | disposition left against medical advice (07) ==
PROVIDERS: Physician Assistant Medical; Emergency Provider Emergency Medicine; PCP Nurse Practitioner Family
DX: R10.2 Pelvic and perineal pain (principal); R11.2 Nausea with vomiting, unspecified; F17.210 Nicotine dependence, cigarettes, uncomplicated; Z03.818 Encounter for observation for suspected exposure to other biological agents ruled out; Z79.899 Other long term (current) drug therapy
CPT/HCPCS: 0241U; 80053; 81001; 81003; 83690; 83735; 84702; 85025; 87086; 99282; 99283

== ENCOUNTER 2024-07-03 13:35 | Emergency (ER) | payer OTHER, SELFPAY ==
[2024-07-03 13:51] VITALS: BP 124/92; PULSE 103; O2SAT 96
[2024-07-03 14:06] LABS: Hematocrit 41.5 % (37.0-47.0); Hemoglobin 14.4 g/dl (12.0-16.0); Mean Corpuscular HGB Conc 34.7 g/dl (31.0-35.0); Mean Corpuscular Hemoglobin 30.2 pg (27.0-33.0); Mean Platelet Volume 9.7 fL (9.4-12.3); Platelet Count 199 X10*3/uL (160-400); Red Blood Count 4.77 X10*6/uL (4.20-5.50); Red Cell Distribution Width 12.1 % (11.0-16.0); White Blood Count 13.8 X10*3/uL (4.8-10.8)
[2024-07-03 14:27] LABS: IDNOW Serial# 6674DD1D; Strep A Nucleic Acid Negative (Negative)
[2024-07-03 14:31] LABS: Alanine Aminotransferase 8 U/L (0-31); Albumin Level 4.3 g/dL (3.5-5.0); Alkaline Phosphatase 44 U/L (39-117); Anion Gap 17 (12-20); Aspartate Amino Transferase 21 U/L (5-31); Bilirubin Total 0.7 mg/dL (0.0-1.0); Blood Urea Nitrogen 11 mg/dL (9-16); Calcium 9.4 mg/dL (8.4-10.2); Carbon Dioxide 15 mmol/L (22-29); Chloride 110 mmol/L (96-108); Estimated Glomerular Filt Rate > 60; Glucose Random 140 mg/dL (60-115); Magnesium 1.7 mg/dL (1.6-2.6); Potassium 3.7 mmol/L (3.3-5.1); Sodium 138 mmol/L (135-145); Total Protein 7.6 g/dL (6.5-8.0)
[2024-07-03 14:33] VITALS: BP 91/62; PULSE 86; RESP 24; TEMP 36.1; O2SAT 97; BMI 24.6
[2024-07-03 14:33] LABS: HCG Quantitative < 2 mIU/mL
--- NOTE | 2024-07-03 14:33 | ED_ITS ---
HPI - General Adult General Chief complaint: Nausea/Vomiting/Diarrhea Stated complaint: Flu-like symptoms, N/V Time Seen by Provider: 07/03/24 17:11 Source: patient Limitations: no limitations History of Present Illness ED Provider: Sahara Wright PA-C HPI narrative: 28-year-old female presents with nausea vomiting that started this morning. Patient states she has been unable to keep anything down since this morning, prior to arrival she developed diarrhea. Patient has known sick contacts with same symptoms. Denies cough or cold symptoms or fever, no abdominal pain. Denies recent travel, use of antibiotics or hospitalization Related Data Previous Rx's ?Medication ?Instructions ?Recorded vitamin with calcium 1 tab PO DAILY #90 tabs 06/22/23 no.72-iron 27 mg-folic acid 1 mg tablet ( Vitamins Plus Low Iron) ondansetron HCl 4 mg tablet 4 mg PO Q8H PRN nausea and 07/04/24 vomiting #10 tabs Allergies Allergy/AdvReac Type Severity Reaction Status Date / Time No Known Allergies Allergy Verified 07/03/24 14:35 Review of Systems 2 Review of Systems: Yes all other systems are reviewed and are negative Constitutional: Constitutional: Denies fatigue and Denies fever(s) Cardiovascular: Cardiovascular: Denies chest pain and Denies dyspnea Respiratory: Respiratory: Denies cough and Denies dyspnea Gastrointestinal: Gastrointestinal: Denies abdominal pain, Reports diarrhea, Reports nausea and Reports vomiting Endocrine: Endocrine: Denies fatigue PMFSH Past Medical History Attestation statement: The following information was validated with the patient. Medical History Galactorrhea Postoperative pain Obesity (BMI 30.0-34.9) Anxiety and depression Surgical History Tubal ligation status No history of previous surgery Family History Family History Mother Asthma Maternal Grandmother HTN (hypertension) Social History Social History Are you a primary critical care specialist to a significant other at home: No Do you presently have visiting nurse or other home services: No Alcohol intake: current Alcohol intake frequency: holidays/special occasions only Cigarette Packs Per Day: 0.5 Cigarettes Per Day: 10.0 Years Smoked: 13 Smoked in Last 30 Days: No Substance Use Type: Marijuana Advance Directives: No Advance Directives Information Provided: No Do you have a plan to hurt others: No Plan Sexual orientation: Straight/Heterosexual Gender identity: Female Physical Exam ED Vital Signs: Vital Signs - 24 hr 07/03/24 14:33 07/03/24 16:27 07/03/24 19:38 Temperature 97 F 97.9 F 98.7 F Pulse Rate 86 69 48 L Respiratory Rate 24 H 16 20 Blood Pressure 91/62 107/64 104/53 L Pulse Oximetry 97 100 100 Oxygen Delivery Method Room Air Room Air Room Air BMI result Body Mass Index 24.6 Const Other: alert, ill-appearing actively vomiting Orientation/consciousness: patient oriented x3 Resp Effort & Inspection: normal respiratory effort Cardio Other: normal peripheral perfusion GI Other: abdomen is soft, nontender nondistended no guarding Skin Other: warm dry no rash Neuro General: patient oriented x3, no focal motor deficits and CN's II-XI intact bilaterally Psych Other: cooperative, anxious Course Course Course Narrative: This is a rapid medical exam performed by Siri Cash NP: Additional HPI, ROS, PE not included below will be deferred to primary provider. Patient is a 28-year-old female presenting with complaint of nausea, vomiting and diarrhea since this morning. Roommate recently sick with similar symptoms. Plan: Labs, viral serology Reevaluation(s) Reevaluation #1: Zofran not effective, she is still retching we will medicate without a Reevaluation #2: Ativan seemed effective, the patient was eager for p.o. challenge Reevaluation #3: patient started vomiting shortly after trying to eat, we will try Compazine and Benadryl Additional Reevaluation(s): I overheard the patient talking on her phone about her marijuana use, I do think this is cannabinoid hyperemesis now, I discussed this with the patient, she admits she smokes a lot of marijuana, I started talking with her about cannabinoid induced hyperemesis, we will be giving low-dose Haldol and discharging, I have instructed her to take hot showers. Medications Administered Discontinued Medications Generic Name Dose Route Start Last Admin Trade Name Freq PRN Reason Stop Dose Admin Diphenhydramine HCl 25 mg 07/03/24 20:40 07/03/24 20:46 Diphenhydramine Hcl 50 Mg/Ml Vial IVPUSH 07/03/24 20:41 25 mg ONCE ONE Administration Haloperidol Lactate 2.5 mg 07/04/24 00:38 07/04/24 00:54 Haloperidol Lactate 5 Mg/Ml Vial IVPUSH 07/04/24 00:39 2.5 mg ONCE ONE Administration Lactated Ringer's 1,000 mls @ 999 mls/hr 07/03/24 17:15 07/03/24 20:45 Lr IV 07/03/24 18:15 Infused .Q1H1M RADHA Infusion Lorazepam 1 mg 07/03/24 18:02 07/03/24 18:21 Lorazepam 2 Mg/Ml Vial IVPUSH 07/03/24 18:03 1 mg ONCE ONE Administration Ondansetron HCl 4 mg 07/03/24 14:03 07/03/24 14:37 Ondansetron Odt 4 Mg Tab.Rapdis TRANSLINGU 07/03/24 14:04 4 mg ONCE ONE Administration Ondansetron HCl 4 mg 07/03/24 17:11 07/03/24 17:28 Ondansetron Hcl 4 Mg/2 Ml Vial IVPUSH 07/03/24 17:12 4 mg ONCE ONE Administration Prochlorperazine Edisylate 10 mg 07/03/24 20:40 07/03/24 20:46 Prochlorperazine Edisylate 10 Mg/2 Ml Vial IVPUSH 07/03/24 20:41 10 mg ONCE ONE Administration Medical Decision Making Medical Decision Making MDM Narrative: 28 year-old female presents with nausea vomiting that started this morning. Patient states she has been unable to keep anything down since this morning, prior to arrival she developed diarrhea. Patient has known sick contacts with same symptoms. Denies cough or cold symptoms or fever, no abdominal pain. Denies recent travel, use of antibiotics or hospitalization. no chronic issues History: Per patient I have considered the following differential diagnoses: Viral gastroenteritis, acute intra-abdominal pathology, C diff, traveler's diarrhea, diverticulitis Plan: Given patient has sick contacts with same symptoms, this is likely viral gastroenteritis. She has no complaint of abdominal pain, her abdominal exam is benign, she does not warrant imaging. We will be giving IV fluid and antiemetic. Screening labs including a viral panel were already obtained. I have independently reviewed the following tests: Labs: Slight leukocytosis, not anemic, no electrolyte abnormality, viral panel neg Lab Data 07/03/24 13:59 07/03/24 13:59 Labs: Lab Results 07/03/24 Range/Units 13:59 WBC 13.8 H (4.8-10.8) X10*3/uL RBC 4.77 (4.20-5.50) X10*6/uL Hgb 14.4 (12.0-16.0) g/dl Hct 41.5 (37.0-47.0) % MCV 87.0 (80.0-98.0) fL MCH 30.2 (27.0-33.0) pg MCHC 34.7 (31.0-35.0) g/dl RDW 12.1 (11.0-16.0) % Plt Count 199 (160-400) X10*3/uL MPV 9.7 (9.4-12.3) fL Immature Gran % (Auto) Cancelled Neut % (Auto) Cancelled Lymph % (Auto) Cancelled [place] % (Auto) Cancelled Eos % (Auto) Cancelled Baso % (Auto) Cancelled Lymph # (Auto) Cancelled [place] # (Auto) Cancelled Eos # (Auto) Cancelled Baso # (Auto) Cancelled Abs Immat Gran (auto) Cancelled Absolute Neuts (auto) Cancelled Absolute Nucleated RBC 0.000 (0.0-0.012) X10*3/uL Nucleated RBC % (auto) 0.0 (0.0-0.2) /100WBC Neutrophils % (Manual) 82 H (45-73) % Band Neutrophils % 8 H (3-5) % Lymphocytes % (Manual) 8 L (20-40) % Monocytes % (Manual) 2 (2-11) % Abs Neuts (Manual) 12.4 H (2.0-8.3) X10*3/uL Lymphocytes # (Manual) 1.1 L (1.2-4.9) X10*3/uL Monocytes # (Manual) 0.3 (0.1-1.2) X10*3/uL Toxic Vacuolation PRESENT Platelet Estimate NORMAL (NORMAL) Plt Morphology Comment NORMAL RBC Morphology NORMAL Sodium 138 (135-145) mmol/L Potassium 3.7 (3.3-5.1) mmol/L Chloride 110 H (96-108) mmol/L Carbon Dioxide 15 L (22-29) mmol/L Anion Gap 17 (12-20) BUN 11 (9-16) mg/dL Creatinine 0.64 (0.5-1.4) mg/dL Estim Creat Clear Calc TNP Estimated GFR > 60 Random Glucose 140 H (60-115) mg/dL Calcium 9.4 D (8.4-10.2) mg/dL Magnesium 1.7 (1.6-2.6) mg/dL Total Bilirubin 0.7 (0.0-1.0) mg/dL AST 21 (5-31) U/L ALT 8 (0-31) U/L Alkaline Phosphatase 44 (39-117) U/L Total Protein 7.6 (6.5-8.0) g/dL Albumin 4.3 (3.5-5.0) g/dL Beta HCG, Quant < 2 mIU/mL Influenza Type A (PCR) NEGATIVE (Negative) Influenza Type B (PCR) NEGATIVE (Negative) RSV RNA Qual (PCR) NEGATIVE (Negative) SARS-CoV-2 RNA (RT-PCR) NEGATIVE (Negative) S. pyogenes GrpA RUTHIE Negative (Negative) Discharge Plan Discharge Clinical Impression: Cannabinoid hyperemesis syndrome Patient Disposition: Home, Self-Care Instructions: Cannabis Abuse (ED) Additional Instructions: All of your screening labs in the viral panel were negative. I do believe your symptoms are secondary to cannabinoid induced hyperemesis. When people smoke a lot of marijuana, pubic: Developed the syndrome of abdominal pain and intractable nausea vomiting. If this occurs, the most useful treatment is to take a hot shower. Follow up with your primary care provider as needed. I am sending you with some [place], you had said this has worked in the past, Prescriptions: New ondansetron HCl 4 mg tablet 4 mg PO Q8H PRN (Reason: nausea and vomiting) Qty: 10 0RF No Action Vitamin Plus Low Iron 27 mg iron- 1 mg tablet 1 tab PO DAILY Qty: 90 4RF Print Language: Belarusian
[2024-07-03] MEDS: Ondansetron ODT 4 MG TAB.RAPDIS TRANSLINGU (14:37)
[2024-07-03 14:41] LABS: Band Neutrophils Percent 8 % (3-5); Lymphocytes Absolute Manual 1.1 X10*3/uL (1.2-4.9); Lymphocytes Percent Manual 8 % (20-40); Monocytes Absolute Manual 0.3 X10*3/uL (0.1-1.2); Monocytes Percent Manual 2 % (2-11); Neutrophils Absolute Manual 12.4 X10*3/uL (2.0-8.3); Neutrophils Percent Manual 82 % (45-73)
[2024-07-03 14:42] LABS: Influenza A PCR NEGATIVE (Negative); Influenza B PCR NEGATIVE (Negative); Platelet Estimate NORMAL (NORMAL); Platelet Morphology Comment NORMAL; RBC Morphology NORMAL; Resp Syncy Virus RNA Qual PCR NEGATIVE (Negative); SARS COV2 PCR INHOUSE NEGATIVE (Negative); Toxic Vacuolation PRESENT
[2024-07-03 16:27] VITALS: BP 107/64; PULSE 69; RESP 16; TEMP 36.6; O2SAT 100
[2024-07-03] MEDS: ondansetron HCL 4 MG/2 ML VIAL IVPUSH (17:28)
[2024-07-03] MEDS: Lactated Ringers 1,000 ML 999 ML IV (17:28)
[2024-07-03] MEDS: LORazepam 2 MG/ML VIAL 1 MG IVPUSH (18:21)
[2024-07-03 19:38] VITALS: BP 104/53; PULSE 48; RESP 20; TEMP 37.1; O2SAT 100
[2024-07-03] MEDS: Prochlorperazine Edisylate 10 MG/2 ML VIAL IVPUSH (20:46)
[2024-07-03] MEDS: diphenhydrAMINE HCL 50 MG/ML VIAL 25 MG IVPUSH (20:46)
--- NOTE | 2024-07-03 21:23 | PC.NURSE ---
Took over care at 19:00, po challenge failed, pt mediated with more anti nausea and vomiting medication.
--- NOTE | 2024-07-03 23:49 | PC.NURSE ---
pt had another vomiting episode notified Valentin Miles
[2024-07-04] MEDS: Haloperidol Lactate 5 MG/ML VIAL 2.5 MG IVPUSH (00:54)
[2024-07-04 01:58] VITALS: BP 100/62; PULSE 64; RESP 16; TEMP 37.1; O2SAT 100
[2024-07-04 01:59] VITALS: BP 100/62; PULSE 64; RESP 16; TEMP 37.1; O2SAT 100
== END 2024-07-04 02:00 | disposition home or self-care (01) ==
PROVIDERS: Registered Nurse Emergency; Emergency Provider Emergency Medicine
DX: R11.2 Nausea with vomiting, unspecified (principal); R19.7 Diarrhea, unspecified; F41.9 Anxiety disorder, unspecified; Z03.818 Encounter for observation for suspected exposure to other biological agents ruled out; Z79.899 Other long term (current) drug therapy
CPT/HCPCS: 0241U; 80053; 83735; 84702; 85007; 85027; 87651; 96361; 96374; 96375; 99284; J0737; J1200; J1630; J2060; J2405; J7120

== ENCOUNTER 2025-04-20 12:12 | Emergency (ER) | payer OTHER, SELFPAY ==
[2025-04-20] VITALS (7 sets, daily range): BP systolic 85–124; BP diastolic 42–81; PULSE 55–91; RESP 16–20; TEMP 36–36.8; O2SAT 95–100; BMI 22.1
--- NOTE | ~2025-04-20 | XR_ITS ---
CLINICAL HISTORY: rule out aspiration 1 view chest x-ray Comparison: None provided Findings: No consolidation or effusion. Normal size heart. No acute fracture. IMPRESSION: 1. No acute findings. This document has been electronically signed by: Hattie Thompson MD on 04/20/2025 13:14:21
--- NOTE | 2025-04-20 12:19 | ED.URI ---
HPI - URI/Sore Throat General Chief Complaint: Nausea/Vomiting/Diarrhea Stated Complaint: ETOH Time Seen by Provider: 04/20/25 13:38 Source: patient and RN notes reviewed Mode of arrival: ambulatory Limitations: no limitations History of Present Illness ED Provider: Genesis Alvarez PA-C HPI Narrative: This is a 29-year-old female, with a past medical history of anxiety and depression as well as cyclical vomiting syndrome, who presents emergency department for concerns of nausea and vomiting since last night. Patient reports that she went out with couple of friends and drank a significant amount of alcohol, she is unable to report how much alcohol she consumed. She also states that she smoked marijuana as well. She states that she awoke this morning, and has been unable to keep any fluids down. She was given Zofran in triage which did not provide her with any relief. She denies any fevers, chills, chest pain, shortness of breath, urinary symptoms, diarrhea or constipation. She had a tubal ligation, otherwise no other abdominal surgeries. No other complaints or concerns at this time. Related Data Previous Rx's ?Medication ?Instructions ?Recorded vitamins with calcium 1 tab PO DAILY #90 tabs 06/22/23 no.72-iron 27 mg-folic acid 1 mg tablet ( Vitamins Plus Low Iron) ondansetron HCl 4 mg tablet 4 mg PO Q8H PRN nausea and 07/04/24 vomiting #10 tabs Allergies Allergy/AdvReac Type Severity Reaction Status Date / Time No Known Allergies Allergy Verified 04/20/25 12:22 Review of Systems Review of Systems: Constitutional : No Fever, No Chills ENT/Mouth : No sore throat, No Rhinorrhea Eyes: No Eye Pain, No Swelling, No Redness Cardiovascular : No Chest Pain, No SOB Respiratory : No Cough, No Sputum Gastrointestinal : + Nausea, + Vomiting, No Diarrhea, + abdominal Pain Genitourinary : No Dysuria, No Hematuria Musculoskeletal : No joint pain, No Myalgias, No Joint Swelling Skin : No Skin Lesions Neuro : No Weakness, No Numbness, No Headache All other systems reviewed and are negative Yes all other systems are reviewed and are negative Constitutional: Constitutional: Reports as per [facility] Past Medical History Medical History Galactorrhea Postoperative pain Obesity (BMI 30.0-34.9) Anxiety and depression Surgical History Tubal ligation status No history of previous surgery Family History Family History Mother Asthma Maternal Grandmother HTN (hypertension) Social History Social History Are you a primary summer child caregiver to a significant other at home: No Do you presently have visiting nurse or other home services: No Alcohol intake: current Alcohol intake frequency: holidays/special occasions only Cigarette Packs Per Day: 0.5 Cigarettes Per Day: 10.0 Years Smoked: 13 Smoked in Last 30 Days: No Use of substances other than those prescribed or required for medical reasons: Yes Substance Use Type: Marijuana Advance Directives: No Advance Directives Information Provided: No Do you have a plan to hurt others: No Plan Patient : No Sexual orientation: Straight/Heterosexual Gender identity: Female Physical Exam Vital Signs: Vital Signs: Last Vital Signs Temp 98.1 F 04/20/25 21:45 Pulse 55 04/20/25 21:45 Resp 16 04/20/25 21:45 BP 102/81 04/20/25 21:45 Pulse Ox 99 04/20/25 21:45 O2 Del Method Room Air 04/20/25 21:45 BMI result Body Mass Index 22.1 Const: General: cooperative, comfortable and no acute distress Orientation/consciousness: patient oriented x3 Limitations: no limitations HEENT: Head: Yes normal to inspection, Yes normocephalic and Yes atraumatic Ears: hearing grossly normal bilaterally General nose exam: Normal external nose present Face and sinus: Yes normal facial exam Mouth: Normal oral and palatal mucosa present, oropharynx normal and moist mucous membranes Throat: Yes posterior oropharynx normal Eyes: General: appearance normal, both eyes and all related structures Eyelids: Yes eyelids normal Conjunctivae: conjunctivae normal Sclerae: sclerae normal Pupils: Equal, round and reactive pupils present EOM: EOMs intact bilaterally Neck: Neck: Yes normal visual inspection, Yes full ROM and Yes no lymphadenopathy Lymphatic: no lymphadenopathy noted Chest: Chest palpation & inspection: normal inspection of the chest Resp: Effort & Inspection: normal respiratory effort and able to speak in complete sentences Auscultation: clear to auscultation bilaterally, no crackles, no rales, no rhonchi and no wheezes Cardio: Rate: regular rate Rhythm: regular rhythm Heart sounds: S1 normal heart sound present and S2 normal heart sound present GI: Other: Abdomen is soft, with diffuse tenderness throughout. Inspection: Yes normal to inspection Skin: General skin exam: no rashes or lesions noted Trauma: no lacerations or abrasions Wounds: no wounds Neuro: General: patient oriented x3 and moves all extremities Cranial nerves: Yes Equal, round and reactive pupils present Extrem: General: Yes normal to inspection Right upper extremity: normal to inspection Left upper extremity: normal to inspection Right lower extremity: normal to inspection Left lower extremity: normal to inspection Course Course Course Narrative: This is a RME preformed in triage by Molly Ybarra PA-C. Date: 04/20/2025, time 12:20 pm. Patient presents with n/v after a night of binge drinking of shots. Aisha presents to the ED after heavy alcohol consumption last night (more than six shots, ?a lot,? more than her usual). She awoke this morning feeling unwell with diffuse body pain, nausea, and a sensation of numbness (?I can?t feel my body?). She denies hematemesis, diarrhea, fever, or cough. She has urinated today. She reports a similar episode a few months ago; at that time she was told it was likely from dehydration and smoking marijuana. She also smoked marijuana last night. When asked about other substances, patient confirmed marijuana use last night but denied tobacco or other substance use. She denies daily drinking. Review of Systems: ? General: Diffuse body pain, weakness. Denies fever. ? GI: Nausea. Denies vomiting, hematemesis, diarrhea. ? : Has voided today. ? Respiratory: Denies cough. ? Neurologic: Reports numbness (?can?t feel my body?). ? Psychiatric: Denies SI/HI. ? Allergies: Denies any allergies. PE: tender epigastric, dry oral mucosa Work UP: abd labs, CXR (rule out aspiration) zofran sublingual- would benefit from IVFs and possibly droperidol, smoked last night (hx of cyclic vomiting syndrome) Will defer full ROS and PE to treating provider. Patient will continued to be monitored in the interim. Reevaluation(s) Reevaluation #1: I received sign-out from my colleague Genesis Alvarez PA-C to resume care of the patient. In summary, patient is 29-year-old female with medical history of anxiety, depression, cyclical vomiting syndrome who presented to ED due to nausea and vomiting that started last night after drinking a significant amount of alcohol, and smoking marijuana. Patient woke up this morning and was unable to tolerate p.o. with multiple episodes of vomiting. Patient has been medicated with 4 milligrams sublingual Zofran, 4 milligrams IV Zofran, 10 milligrams IV metoclopramide, 0.625 milligrams IV droperidol, 25 milligrams IV Benadryl, 0.5 milligrams IV Dilaudid during the course within the department with eventual resolution of her symptoms. Patient is now alert, ate a tuna sandwich in the department and states she feels significantly better. Patient will be discharged home for self-care. Time: 21:26 Medications Administered Discontinued Medications Generic Name Dose Route Start Last Admin Trade Name Freq PRN Reason Stop Dose Admin Diphenhydramine HCl 25 mg 04/20/25 13:58 04/20/25 14:29 Diphenhydramine Hcl 50 Mg/Ml Vial IVPUSH 04/20/25 13:59 25 mg ONCE ONE Administration Droperidol 0.625 mg 04/20/25 16:36 04/20/25 16:51 Droperidol 5 Mg/2 Ml Vial IVPUSH 04/20/25 16:37 0.625 mg ONCE ONE Administration Famotidine 20 mg 04/20/25 13:58 04/20/25 14:29 Famotidine/Pf 20 Mg/2 Ml Vial IVPUSH 04/20/25 13:59 20 mg ONCE ONE Administration Hydromorphone HCl 0.5 mg 04/20/25 18:10 04/20/25 18:21 Hydromorphone Hcl 0.5 Mg/0.5 Ml Syringe IVPUSH 04/20/25 18:11 0.5 mg ONCE ONE Administration Protocol Lactated Ringer's 2,000 mls @ 999 mls/hr 04/20/25 14:00 04/20/25 16:40 Lr IV 04/20/25 16:00 Infused .Q2H1M RADHA Infusion Acetaminophen 1,000 mg in 100 mls @ 400 mls/hr 04/20/25 13:58 04/20/25 15:33 Ofirmev IV 04/20/25 14:12 Infused ONCE ONE Infusion Sodium Chloride 1,000 mls @ 999 mls/hr 04/20/25 18:11 04/20/25 19:18 Ns IV 04/20/25 19:11 Infused .Q1H1M ONE Infusion Metoclopramide HCl 10 mg 04/20/25 13:58 04/20/25 14:29 Metoclopramide Hcl 10 Mg/2 Ml Vial IVPUSH 04/20/25 13:59 10 mg ONCE ONE Administration Ondansetron HCl 4 mg 04/20/25 12:20 04/20/25 12:24 Ondansetron Odt 4 Mg Tab.Rapdis TRANSLINGU 04/20/25 12:21 4 mg ONCE ONE Administration Ondansetron HCl 4 mg 04/20/25 15:18 04/20/25 15:31 Ondansetron Hcl 4 Mg/2 Ml Vial IVPUSH 04/20/25 15:19 4 mg ONCE ONE Administration Medical Decision Making Medical Decision Making [facility] Narrative: This is a 29-year-old female, with no known medical problems, who presents emergency department with complaints of nausea, vomiting, and abdominal pain which started this morning. Patient admits to drinking an excessive amount of alcohol yesterday, and awoke with her symptoms. She has been unable to keep anything down. On arrival, vital signs within normal limits. She is speaking in full sentences under no acute distress. Abdomen is diffusely tender throughout, however soft. Symptoms likely attributed to alcohol use, she also endorses cannabis use, this could also be cannabis hyperemesis syndrome. Will medicate with IV fluids, IV antiemetics. She was given Zofran in triage which did not provide her with any relief, continues to have vomiting, will medicate with Benadryl and Reglan. We will continue to closely monitor. Labs were obtained prior to my evaluation, she has slight leukocytosis at 11.0, likely reactive secondary to retching. Chemistry revealing no significant electrolyte derangement. Patient is not . Abdomen is soft, with diffuse tenderness throughout, at this time deferring diagnostic imaging given presentation, and history however will continue to closely monitor pending workup. 3:14 PM 04/20/2025 (Genesis Alvarez PA-C): Patient reporting her pain has resolved however continues to have nausea. Will trial Zofran IV. 4:50 PM 04/20/2025 (Genesis Alvarez PA-C): No improvement after IV Zofran, will try droperidol. 5:56 PM 04/20/2025 (Genesis Alvarez PA-C): Patient re-evaluated, currently vomiting. She has received Zofran, Reglan, Benadryl, droperidol, Pepcid, and Tylenol. We will obtain an EKG to assess QT, and try 1 more antiemetic. I discussed with patient that if no relief, patient may need to be admitted to the hospital for intractable nausea and vomiting. 6:14 PM 04/20/2025 (Genesis Alvarez PA-C): I discussed this with my attending physician after EKG, QT QTC 514. She does have mild increased pain, and nausea vomiting, given this, attending physician recommending Dilaudid to see if patient has any symptomatic relief. Differential Diagnosis Differential Diagnoses: The differential diagnosis associated with the presentation includes Gastroenteritis, gastritis, cyclical vomiting syndrome, alcohol use disorder, alcohol abuse Admission/Observation Consideration of admission/observation: Escalation of care including admission/observation considered Lab Data [facility] Lab Attestation statement: I reviewed the patient's lab results. See [facility] 04/20/25 12:58 04/20/25 12:58 Labs: Lab Results 04/20/25 04/20/25 Range/Units 12:58 20:23 WBC 11.0 H (4.8-10.8) X10*3/uL RBC 5.17 (4.20-5.50) X10*6/uL Hgb 15.5 (12.0-16.0) g/dl Hct 45.0 (37.0-47.0) % MCV 87.0 (80.0-98.0) fL MCH 30.0 (27.0-33.0) pg MCHC 34.4 (31.0-35.0) g/dl RDW 12.4 (11.0-16.0) % Plt Count 326 D (160-400) X10*3/uL MPV 9.7 (9.4-12.3) fL Immature Gran % (Auto) 0.5 H (0.0-0.4) % Neut % (Auto) 70.6 (45-73) % Lymph % (Auto) 23.9 (20-40) % [place] % (Auto) 3.6 (2-11) % Eos % (Auto) 0.8 (0-4) % Baso % (Auto) 0.6 (0-2) % Lymph # (Auto) 2.6 (1.2-4.9) X10*3/uL [place] # (Auto) 0.4 (0.1-1.2) X10*3/uL Eos # (Auto) 0.1 (0.0-0.4) X10*3/uL Baso # (Auto) 0.1 (0.0-0.2) X10*3/uL Abs Immat Gran (auto) 0.05 H (0.00-0.03) X10*3/uL Absolute Neuts (auto) 7.7 (2.0-8.3) x10*3/uL Absolute Nucleated RBC 0.000 (0.0-0.012) X10*3/uL Nucleated RBC % (auto) 0.0 (0.0-0.2) /100WBC Sodium 140 (135-145) mmol/L Potassium 3.3 (3.3-5.1) mmol/L Chloride 104 (96-108) mmol/L Carbon Dioxide 22 (22-29) mmol/L Anion Gap 17 (12-20) BUN 9 (9-16) mg/dL Creatinine 0.61 (0.5-1.4) mg/dL Estim Creat Clear Calc 102.7 Estimated GFR > 60 Random Glucose 136 H (60-115) mg/dL Calcium 9.6 (8.4-10.2) mg/dL Magnesium 1.9 (1.6-2.6) mg/dL Total Bilirubin 0.6 (0.0-1.0) mg/dL AST 23 (5-31) U/L ALT 11 (0-31) U/L Alkaline Phosphatase 49 (39-117) U/L Total Protein 7.7 (6.5-8.0) g/dL Albumin 5.1 H (3.5-5.0) g/dL Lipase 21 (8-78) U/L Beta HCG, Quant < 2 mIU/mL Urine Color Dark Yellow Urine Appearance Cloudy Urine pH >= 9.0 (5.0-9.0) Ur Specific [place] >= 1.030 H (1.005-1.025) Urine Protein 100 (2+) H (Neg-Trace) mg/dL Urine Glucose (UA) Negative (Negative) mg/dL Urine Ketones 80 (Negative) mg/dL Urine Blood Negative (Negative) Urine Nitrite Negative (Negative) Ur Leukocyte Esterase Negative (Negative) Urine RBC 3-5 H (0-2) /HPF Urine WBC 0-5 (0-5) /HPF Ur Squamous Epith Cells 3-5 (0-2) /HPF Urine Bacteria 1+ (None Seen) Hyaline Casts 3-5 (0-2) /LPF Urine Opiates Screen Not Detected (Not Detect) Ur Buprenorphine Scrn Not Detected (Not Detect) ng/mL Ur Oxycodone Screen Not Detected (Not Detect) ng/mL Urine Methadone Screen Not Detected (Not Detect) ng/mL Urine Fentanyl Screen Not Detected (Not Detect) Ur Barbiturates Screen Not Detected (Not Detect) Ur Phencyclidine Scrn Not Detected (Not Detect) Ur Amphetamines Screen Not Detected (Not Detect) U Benzodiazepines Scrn Not Detected (Not Detect) Urine Cocaine Screen POSITIVE H (Not Detect) U Marijuana (THC) Screen POSITIVE H (Not Detect) Ethyl Alcohol < 10 mg/dL Discharge Plan Discharge Clinical Impression: Cyclical vomiting Patient Disposition: Home, Self-Care Additional Instructions: You were evaluated in the emergency department for nausea and vomiting that began after drinking alcohol and smoking marijuana last night. You were given IV fluids, and multiple medications to control your nausea and vomiting. You were able to tolerate eating in the department without nausea and vomiting. Your nausea and vomiting is most likely due to alcohol and marijuana consumption. Continue to get plenty of oral hydration through Gatorade, Pedialyte or Powerade whatever your best able to tolerate, and eat a bland diet and advance as tolerated. Please follow up with your primary care doctor to ensure resolution of your symptoms. Please return to the emergency department if nausea and vomiting return, abdominal pain, fevers over 100.4 degrees, chest pain, shortness of breath, or any new/worsening/concerning symptoms. Prescriptions: No Action ondansetron HCl 4 mg tablet 4 mg PO Q8H PRN (Reason: nausea and vomiting) Qty: 10 0RF Vitamin Plus Low Iron 27 mg iron- 1 mg tablet 1 tab PO DAILY Qty: 90 4RF Interventions: ED Discharge Assessment Last Done: 04/20/25 21:45 Discharge Date/Time: 04/20/25 21:45 Print Language: Frisian
[2025-04-20 13:07] LABS: MANUAL DIFF FLAG NO
[2025-04-20 13:08] LABS: Hematocrit 45.0 % (37.0-47.0); Hemoglobin 15.5 g/dl (12.0-16.0); Imm Gran Abs Auto 0.05 X10*3/uL (0.00-0.03); Imm Gran Pct Auto 0.5 % (0.0-0.4); Lymphocytes Absolute Auto 2.6 X10*3/uL (1.2-4.9); Mean Corpuscular HGB Conc 34.4 g/dl (31.0-35.0); Mean Corpuscular Hemoglobin 30.0 pg (27.0-33.0); Mean Corpuscular Volume 87.0 fL (80.0-98.0); NRBC Abs Auto 0.000 X10*3/uL (0.0-0.012); NRBC Pct Auto 0.0 /100WBC (0.0-0.2); Platelet Count 326 X10*3/uL (160-400); Red Blood Count 5.17 X10*6/uL (4.20-5.50); White Blood Count 11.0 X10*3/uL (4.8-10.8)
[2025-04-20 13:28] LABS: Alanine Aminotransferase 11 U/L (0-31); Albumin Level 5.1 g/dL (3.5-5.0); Alkaline Phosphatase 49 U/L (39-117); Anion Gap 17 (12-20); Aspartate Amino Transferase 23 U/L (5-31); Blood Urea Nitrogen 9 mg/dL (9-16); Calcium 9.6 mg/dL (8.4-10.2); Carbon Dioxide 22 mmol/L (22-29); Chloride 104 mmol/L (96-108); Creatinine Clr Calc Pharmacy 102.7; Estimated Glomerular Filt Rate > 60; Lipase 21 U/L (8-78); Magnesium 1.9 mg/dL (1.6-2.6); Potassium 3.3 mmol/L (3.3-5.1); Sodium 140 mmol/L (135-145); Total Protein 7.7 g/dL (6.5-8.0)
[2025-04-20] MEDS: Lactated Ringers 2,000 ML 999 ML IV (14:27)
--- NOTE | 2025-04-20 17:55 | ECG_ITS ---
Test Reason : ASSES QT Blood Pressure : */* mmHG Vent. Rate : 60 BPM Atrial Rate : 60 BPM P-R Int : 158 ms QRS Dur : 80 ms QT Int : 514 ms P-R-T Axes : 63 -27 61 degrees QTcB Int : 514 ms Sinus rhythm with marked sinus arrhythmia T wave abnormality, consider anterior ischemia Abnormal ECG No previous ECGs available Referred By: Genesis Alvarez Electronically Signed By: DIEGO EDGAR MD
[2025-04-20 20:30] LABS: Appearance Urine Cloudy; Glucose Urine UA Negative (Negative); PH >= 9.0 (5.0-9.0); Specific Gravity - Urine >= 1.030 (1.005-1.025); UMIC TRIGGER UACC YES
[2025-04-20 20:39] LABS: Cannabinoid Screen Urine POSITIVE (Not Detect)
--- NOTE | 2025-04-20 21:29 | PC.NURSE ---
pt ambulatory to and from bathroom to obtain urine sample. pt given tuna sandwich and clarita kelly and tolerated well. reports feeling much better and feels well enough to go home. PA made aware.
== END 2025-04-20 21:45 | disposition home or self-care (01) ==
PROVIDERS: Physician Assistant Medical; Emergency Provider Emergency Medicine
DX: R11.15 Cyclical vomiting syndrome unrelated to migraine (principal); F10.90 Alcohol use, unspecified, uncomplicated; F12.90 Cannabis use, unspecified, uncomplicated
CPT/HCPCS: 36415; 71045; 80053; 80307; 81001; 83690; 83735; 84702; 85025; 93005; 96361; 96365; 96375; 99285; J0131; J1171; J1200; J1308; J1790; J2405; J2765; J7120

== ENCOUNTER → 2025-04-20 12:22 | Outpatient (BNV) | payer OTHER, SELFPAY | PROVIDERS: Emergency Provider Emergency Medicine; Visit Provider Radiology Diagnostic Radiology | DX: Z03.89 Encounter for observation for other suspected diseases and conditions ruled out (principal) | CPT/HCPCS: 71045 ==

== ENCOUNTER → 2025-04-20 17:55 | Outpatient (BNV) | payer OTHER, SELFPAY | PROVIDERS: Emergency Provider Emergency Medicine; Visit Provider Internal Medicine Cardiovascular Disease | DX: R94.31 Abnormal electrocardiogram [ECG] [EKG] (principal); Z13.6 Encounter for screening for cardiovascular disorders | CPT/HCPCS: 93010 ==